=== PATIENT | male | born 2000 | race Caucasian/White ===

== ENCOUNTER 2022-11-07 09:33 | Emergency (ER) | payer MEDICAID ==
[~2022-11-07] VITALS: Ht 188 cm; Wt 79.5 kg
[2022-11-07] MEDS: MUPIROCIN CALCIUM 2% 22 GM OINTMENT TP ONE (11:55)
[2022-11-07] MEDS: CefTRIAXone SODIUM 1 GM/VIAL IM ONE (11:56)
[2022-11-07] MEDS: LIDOCAINE/PF 1% 2 ML VIAL IM ONE (11:56)
[2022-11-07] MEDS ORDERED: DOXY-354 PO (12:06)
[2022-11-07 13:00] LABS: APPEARANCE,URINE CLEAR (CLEAR); BILIRUBIN,URINE NEGATIVE (NEGATIVE); GLUCOSE, URINE (UA) NEGATIVE (NEGATIVE); KETONES,URINE NEGATIVE (NEGATIVE); LEUKOCYTE ESTERASE ,URINE NEGATIVE (NEGATIVE); NITRATE,URINE NEGATIVE (NEGATIVE); OCCULT BLOOD,URINE NEGATIVE (NEGATIVE); PH,URINE 6.5 (5.0-8.0); PROTEIN,URINE NEGATIVE (NEGATIVE); SPECIFIC GRAVITIY, URINE 1.022 (1.003-1.030); UROBILINOGEN,URINE <=1.0 mg/dL (<=1.0)
[2022-11-07 13:22] VITALS: BP 130/78
== END 2022-11-07 13:53 | disposition home or self-care (01) ==
LOC: EMS 09:35
DX: N48.1 Balanitis (principal); R36.9 Urethral discharge, unspecified
CPT/HCPCS: 99283; 81003; 96372; J0696; J3490